=== PATIENT | male | born 1935 | race Caucasian/White ===

== ENCOUNTER 2016-09-06 01:04 | Inpatient (IN) | payer OTHER ==
[~2016-09-06] VITALS: Ht 170.2 cm; Wt 68.0 kg
[~2016-09-06 01:04] MED LIST: ASPERDRINK81 MG PO; AZASAN75 MG PO; CYPROHEPTADINE H4 MG PO; DAILY VALUE1 EACH PO; LIPITOR40 MG PO; LOPRESSOR50 MG PO; LOW DOSE ASPIRI81 M1 PO; NIASPAN,SLO-NI500 MG PO; NITRO-DUR1 EAC1 TD; NITROSTAT0.4 MG SL; NORVASC5 MG PO; PANTOPRAZOLE SO40 MG PO; PLAVIX75 MG PO; ROCALTROL0.25 MCG; ROCALTROL0.25 MCG PO; SERTRALINE HCL50 MG PO; VITAMIN C500 M1 PO
[2016-09-06 01:45] LABS: MCH 31.8 PG (29.0-34.0); MCHC 32.9 G/DL (30.0-36.0); MCV 96.7 FL (86-99); MEAN PLAT.VOLUME 10.5 uM^3 (9.0-12.4); PLATELET COUNT 167 K/uL (156-360); RBC DIS.WIDTH-CV 14.3 % (11.8-14.6); RBC DIS.WIDTH-SD 50.7 % (39-53); RED BLOOD COUNT 3.62 M/uL (4.00-5.50); WHITE BLOOD COUNT 12.4 K/uL (4.1-10.2)
[2016-09-06 01:56] LABS: CARBON DIOXIDE (BICARBONATE) 30.6 MEQ/L (20-31)
[2016-09-06 02:01] LABS: CHLORIDE 102 mEq/L (99-109); POTASSIUM 3.5 mEq/L (3.7-5.4); SODIUM 137 mEq/L (136-147)
[2016-09-06 02:02] LABS: GLUCOSE 118 mg/dL (70-99)
[2016-09-06 02:04] LABS: ANION GAP 10 MEQ/L (2-14)
[2016-09-06 02:06] LABS: GFR ESTIMATE (CALCULATED) 56 mL/min/
[2016-09-06 02:07] LABS: UREA NITROGEN (BUN) 13 mg/dL (9-23)
[2016-09-06 02:15] LABS: TROP-I INTERPRETATION NEGATIVE; TROPONIN-I 0.02 ng/mL (0.0-0.30)
[2016-09-06] MEDS ORDERED: VITAMIN B12-FO1 EACH PO (03:29)
[2016-09-06] MEDS ORDERED: ULTRAM50 MG PO (03:29)
[2016-09-06] MEDS ORDERED: PLAVIX75 MG PO (03:30)
[2016-09-06] MEDS ORDERED: IMURAN50 MG PO (03:31)
[2016-09-06 08:24] LABS: MAGNESIUM 1.7 mg/dL (1.3-2.7)
[2016-09-06] MEDS ORDERED: AMLODIPINE BESYL5 MG PO (10:26)
[2016-09-06] MEDS ORDERED: VITAMIN B-12250 MCG PO (10:29)
[2016-09-06] MEDS ORDERED: METOPROLOL TART25 MG PO (10:30)
[2016-09-06] MEDS ORDERED: SERTRALINE HCL100 MG PO (10:33)
[2016-09-06] MEDS ORDERED: NEXIUM40 MG PO (10:33)
[2016-09-06] MEDS ORDERED: VITAMIN E100 UNIT PO (10:35)
[2016-09-06] MEDS ORDERED: LOPRESSOR25 MG PO (10:52)
[2016-09-06 14:56] VITALS: BP 97/58
[2016-09-06 20:00] VITALS: BP 108/66
[2016-09-06 23:26] VITALS: BP 110/67
[2016-09-07 03:31] VITALS: BP 116/71
[2016-09-07 06:39] LABS: HEMATOCRIT 31.8 % (38.0-50.0); MCH 32.2 PG (29.0-34.0); MCHC 32.7 G/DL (30.0-36.0); MCV 98.5 FL (86-99); MEAN PLAT.VOLUME 10.8 uM^3 (9.0-12.4); PLATELET COUNT 155 K/uL (156-360); RBC DIS.WIDTH-CV 14.7 % (11.8-14.6); RBC DIS.WIDTH-SD 53.2 % (39-53); RED BLOOD COUNT 3.23 M/uL (4.00-5.50); WHITE BLOOD COUNT 9.9 K/uL (4.1-10.2)
[2016-09-07 07:15] LABS: ANION GAP 6 MEQ/L (2-14); CHLORIDE 103 MEQ/L (99-109); GFR ESTIMATE (CALCULATED) > 59 mL/min/; POTASSIUM 4.1 MEQ/L (3.7-5.4); SAMPLE HEMOLYSIS CHECK 0; SAMPLE ICTERIC CHECK 0; SAMPLE LIPEMIA CHECK 0; SODIUM 138 MEQ/L (136-147); UREA NITROGEN (BUN) 16 mg/dL (9-23)
[2016-09-07 07:18] VITALS: BP 120/56
[2016-09-07 07:23] LABS: GLUCOSE 78 mg/dL (70-99)
[2016-09-07 11:01] VITALS: BP 106/60
[2016-09-07 14:55] VITALS: BP 101/55
[2016-09-07 20:00] VITALS: BP 104/65
[2016-09-07 23:58] VITALS: BP 120/63
[2016-09-08 03:57] VITALS: BP 120/57
[2016-09-08 05:52] LABS: EOSINOPHIL (%) 0.3 % (0-5); HEMATOCRIT 32.3 % (38.0-50.0); IMMATURE GRANULOCYTE (%) 0.4 % (0.0-0.7); INSTRUMENT ABS NEUTROPHIL CT 7.9 K/uL; LYMPHOCYTE COUNT 1.1 K/uL (1.0-2.8); MCH 31.9 PG (29.0-34.0); MCHC 33.1 G/DL (30.0-36.0); MCV 96.4 FL (86-99); MEAN PLAT.VOLUME 10.3 uM^3 (9.0-12.4); MONOCYTE (%) 9.4 % (3-12); MONOCYTE COUNT 0.9 K/uL (0-0.8); NEUTROPHIL (%) 78.9 % (45-76); NEUTROPHIL COUNT 7.9 K/uL (1.8-6.4); PLATELET COUNT 167 K/uL (156-360); RBC DIS.WIDTH-CV 14.5 % (11.8-14.6); RBC DIS.WIDTH-SD 51.6 % (39-53); RED BLOOD COUNT 3.35 M/uL (4.00-5.50)
[2016-09-08 06:19] LABS: ANION GAP 12 MEQ/L (2-14); CHLORIDE 101 MEQ/L (99-109); GFR ESTIMATE (CALCULATED) > 59 mL/min/; POTASSIUM 4.1 MEQ/L (3.7-5.4); SAMPLE HEMOLYSIS CHECK 0; SAMPLE ICTERIC CHECK 0; SAMPLE LIPEMIA CHECK 0; SODIUM 136 MEQ/L (136-147); UREA NITROGEN (BUN) 22 mg/dL (9-23)
[2016-09-08 06:21] LABS: GLUCOSE 107 mg/dL (70-99)
[2016-09-08 07:35] VITALS: BP 124/73
[2016-09-08 12:26] VITALS: BP 129/70
[2016-09-08 16:39] VITALS: BP 132/68
[2016-09-08 20:02] VITALS: BP 121/71
[2016-09-08 23:59] VITALS: BP 146/78
[2016-09-09 01:19] LABS: HEMATOCRIT 33.8 % (38.0-50.0); MCH 31.9 PG (29.0-34.0); MCHC 33.4 G/DL (30.0-36.0); MCV 95.5 FL (86-99); MEAN PLAT.VOLUME 10.4 uM^3 (9.0-12.4); PLATELET COUNT 188 K/uL (156-360); RBC DIS.WIDTH-CV 14.2 % (11.8-14.6); RBC DIS.WIDTH-SD 49.7 % (39-53); RED BLOOD COUNT 3.54 M/uL (4.00-5.50); WHITE BLOOD COUNT 8.2 K/uL (4.1-10.2)
[2016-09-09 01:30] LABS: CHLORIDE 102 mEq/L (99-109); POTASSIUM 3.9 mEq/L (3.7-5.4); SODIUM 137 mEq/L (136-147)
[2016-09-09 01:32] LABS: GLUCOSE 149 mg/dL (70-99)
[2016-09-09 01:33] LABS: ANION GAP 11 MEQ/L (2-14)
[2016-09-09 01:35] LABS: GFR ESTIMATE (CALCULATED) 56 mL/min/
[2016-09-09 01:36] LABS: UREA NITROGEN (BUN) 24 mg/dL (9-23)
[2016-09-09 06:04] LABS: EOSINOPHIL (%) 0 % (0-5); HEMATOCRIT 33.6 % (38.0-50.0); IMMATURE GRANULOCYTE (%) 0.4 % (0.0-0.7); INSTRUMENT ABS NEUTROPHIL CT 7.9 K/uL; MCHC 32.4 G/DL (30.0-36.0); MCV 98.5 FL (86-99); MEAN PLAT.VOLUME 10.9 uM^3 (9.0-12.4); MONOCYTE (%) 9.9 % (3-12); NEUTROPHIL (%) 79.5 % (45-76); NEUTROPHIL COUNT 7.9 K/uL (1.8-6.4); PLATELET COUNT 187 K/uL (156-360); RBC DIS.WIDTH-CV 14.5 % (11.8-14.6); RBC DIS.WIDTH-SD 53.1 % (39-53); RED BLOOD COUNT 3.41 M/uL (4.00-5.50)
[2016-09-09 07:10] LABS: ANION GAP 14 MEQ/L (2-14); CHLORIDE 100 MEQ/L (99-109); GFR ESTIMATE (CALCULATED) 52 mL/min/; POTASSIUM 4.4 MEQ/L (3.7-5.4); SAMPLE HEMOLYSIS CHECK 0; SAMPLE ICTERIC CHECK 0; SAMPLE LIPEMIA CHECK 0; SODIUM 141 MEQ/L (136-147); UREA NITROGEN (BUN) 25 mg/dL (9-23)
[2016-09-09 07:11] LABS: GLUCOSE 86 mg/dL (70-99)
[2016-09-09 08:03] VITALS: BP 100/66
[2016-09-09 12:08] VITALS: BP 104/61
[2016-09-09 13:41] VITALS: BP 104/62
[2016-09-09 16:12] VITALS: BP 100/51
[2016-09-09 19:45] VITALS: BP 108/61
[2016-09-09 23:53] VITALS: BP 111/64
[2016-09-10 06:18] LABS: EOSINOPHIL (%) 0.2 % (0-5); IMMATURE GRANULOCYTE (%) 0.4 % (0.0-0.7); INSTRUMENT ABS NEUTROPHIL CT 5.6 K/uL; LYMPHOCYTE COUNT 1.4 K/uL (1.0-2.8); MCH 32.2 PG (29.0-34.0); MCHC 32.8 G/DL (30.0-36.0); MCV 98.2 FL (86-99); MEAN PLAT.VOLUME 10.8 uM^3 (9.0-12.4); MONOCYTE (%) 12.9 % (3-12); NEUTROPHIL (%) 69.4 % (45-76); NEUTROPHIL COUNT 5.6 K/uL (1.8-6.4); PLATELET COUNT 210 K/uL (156-360); RBC DIS.WIDTH-CV 14.4 % (11.8-14.6); RED BLOOD COUNT 3.26 M/uL (4.00-5.50); WHITE BLOOD COUNT 8.1 K/uL (4.1-10.2)
[2016-09-10 06:46] LABS: ANION GAP 11 MEQ/L (2-14); CHLORIDE 101 MEQ/L (99-109); GFR ESTIMATE (CALCULATED) 52 mL/min/; GLUCOSE 83 mg/dL (70-99); POTASSIUM 3.8 MEQ/L (3.7-5.4); SAMPLE HEMOLYSIS CHECK 0; SAMPLE ICTERIC CHECK 0; SAMPLE LIPEMIA CHECK 0; SODIUM 139 MEQ/L (136-147); UREA NITROGEN (BUN) 32 mg/dL (9-23)
[2016-09-10 09:00] VITALS: BP 144/85
[2016-09-10 11:04] VITALS: BP 139/79
[2016-09-10 15:51] LABS: ADD MIUA? YES; BILIRUBIN NEGATIVE; BLOOD NEGATIVE; COLOR YELLOW ((YELLOW)); GLUCOSE (STRIP) NEGATIVE; KETONES 5; LEUKOCYTES TRACE; NITRITE NEGATIVE; PROTEIN (STRIP) NEGATIVE; SPECIFIC GRAVITY 1.013 (1.000-1.030); UROBILINOGEN 0.2 MG/DL (0.2-1.0)
[2016-09-10 15:53] LABS: BACTERIA NONE SEEN /HPF; EPITHELIAL CELLS RARE /HPF; MUCUS TRACE /LPF; RED BLOOD CELLS 0-5 /HPF (0-5); UCUL ADDED? NO; WHITE BLOOD CELLS 0-5 /HPF (0-5)
[2016-09-10 16:11] VITALS: BP 139/89
[2016-09-11 00:15] VITALS: BP 140/78
[2016-09-11 08:13] VITALS: BP 142/79
[2016-09-11 15:16] VITALS: BP 142/88
[2016-09-11 23:47] VITALS: BP 110/68
[2016-09-12 07:03] LABS: HEMATOCRIT 33.7 % (38.0-50.0); MCH 32.2 PG (29.0-34.0); MCHC 32.3 G/DL (30.0-36.0); MCV 99.7 FL (86-99); MEAN PLAT.VOLUME 10.6 uM^3 (9.0-12.4); PLATELET COUNT 240 K/uL (156-360); RBC DIS.WIDTH-CV 14.5 % (11.8-14.6); RBC DIS.WIDTH-SD 53.1 % (39-53); RED BLOOD COUNT 3.38 M/uL (4.00-5.50); WHITE BLOOD COUNT 9.4 K/uL (4.1-10.2)
[2016-09-12 07:44] LABS: ANION GAP 11 MEQ/L (2-14); CHLORIDE 103 MEQ/L (99-109); GFR ESTIMATE (CALCULATED) 56 mL/min/; MAGNESIUM 2.2 mg/dl (1.3-2.7); POTASSIUM 3.7 MEQ/L (3.7-5.4); SAMPLE HEMOLYSIS CHECK 0; SAMPLE ICTERIC CHECK 0; SAMPLE LIPEMIA CHECK 0; SODIUM 141 MEQ/L (136-147); UREA NITROGEN (BUN) 32 mg/dL (9-23)
[2016-09-12 07:47] LABS: GLUCOSE 106 mg/dL (70-99)
[2016-09-12 07:51] VITALS: BP 102/64
[2016-09-12 15:41] VITALS: BP 118/62
[2016-09-12 23:52] VITALS: BP 109/65
[2016-09-13 08:07] VITALS: BP 102/64
[2016-09-13] MEDS ORDERED: DONEPEZIL HCL5 MG PO (13:32)
[2016-09-13] MEDS ORDERED: DUONEB 2.5-0.5 M3 ML AEROSOL (13:32)
[2016-09-13] MEDS ORDERED: LOPRESSOR25 MG PO (13:32)
[2016-09-13] MEDS ORDERED: GUAIFENESIN WI120 M1 PO (13:33)
[2016-09-13] MEDS ORDERED: DOCUSATE SODIU100 MG PO (13:33)
== END 2016-09-13 16:40 | DRG 194 ==
LOC: EME → EDBD 01:04 → 5SOUTH 02:43 → EDOF 02:43 → 5SOUTH 19:20
PROVIDERS: Emergency Medicine; Hospitalist; Internal Medicine; Physician Assistant
DX: J18.9 Pneumonia, unspecified organism (principal); I25.10 Atherosclerotic heart disease of native coronary artery without angina pectoris; I25.2 Old myocardial infarction; I13.0 Hypertensive heart and chronic kidney disease with heart failure and stage 1 through stage 4 chronic kidney disease, or unspecified chronic kidney disease; N18.3 Chronic kidney disease, stage 3 (moderate); I35.0 Nonrheumatic aortic (valve) stenosis; J98.11 Atelectasis; I44.7 Left bundle-branch block, unspecified; D64.9 Anemia, unspecified; E78.5 Hyperlipidemia, unspecified; F01.50 Vascular dementia, unspecified severity, without behavioral disturbance, psychotic disturbance, mood disturbance, and anxiety; Z87.891 Personal history of nicotine dependence; I50.32 Chronic diastolic (congestive) heart failure; R09.02 Hypoxemia; R04.2 Hemoptysis; Z95.5 Presence of coronary angioplasty implant and graft; J98.01 Acute bronchospasm; F32.9 Major depressive disorder, single episode, unspecified
CPT/HCPCS: 70450; 71010; 71020; 71250; 80048; 80048 91; 81003; 82607; 82803; 82948; 83605; 83735; 83880; 84145 90; 84443; 84484; 85025; 85027; 87040; 93005; 94640; 94640 76; 94799; 97530 GP; 99202; 99281; 99285; J1644; J1956; J2060; J7120; J7500

== ENCOUNTER 2016-09-28 16:56 | Inpatient (IN) | payer OTHER ==
[~2016-09-28] VITALS: Ht 170.2 cm; Wt 65.3 kg
[~2016-09-28 16:56] MED LIST changes: +AMLODIPINE BESYL5 MG PO; +DOCUSATE SODIU100 MG PO; +DONEPEZIL HCL5 MG PO; +DUONEB 2.5-0.5 M3 ML AEROSOL; +GUAIFENESIN WI120 M1 PO; +IMURAN50 MG PO; +LOPRESSOR25 MG PO; +METOPROLOL TART25 MG PO; +NEXIUM40 MG PO; +SERTRALINE HCL100 MG PO; +ULTRAM50 MG PO; +VITAMIN B-12250 MCG PO; +VITAMIN B12-FO1 EACH PO; +VITAMIN E100 UNIT PO
[2016-09-28 17:29] LABS: HEMATOCRIT 33.2 % (38.0-50.0); MCH 30.9 PG (29.0-34.0); MCHC 31.3 G/DL (30.0-36.0); MCV 98.5 FL (86-99); MEAN PLAT.VOLUME 10.3 uM^3 (9.0-12.4); PLATELET COUNT 271 K/uL (156-360); RBC DIS.WIDTH-CV 14.1 % (11.8-14.6); RBC DIS.WIDTH-SD 49.7 % (39-53); RED BLOOD COUNT 3.37 M/uL (4.00-5.50); WHITE BLOOD COUNT 6.5 K/uL (4.1-10.2)
[2016-09-28 17:36] LABS: CHLORIDE 108 mEq/L (99-109); POTASSIUM 4.1 mEq/L (3.7-5.4); SODIUM 141 mEq/L (136-147)
[2016-09-28 17:38] LABS: GLUCOSE 149 mg/dL (70-99)
[2016-09-28 17:40] LABS: ANION GAP 9 MEQ/L (2-14); TOTAL BILIRUBIN 0.5 mg/dL (0.0-1.0)
[2016-09-28 17:42] LABS: ALKALINE PHOSPHATASE 93 IU/L (3-129); GFR ESTIMATE (CALCULATED) 56 mL/min/
[2016-09-28 17:43] LABS: UREA NITROGEN (BUN) 16 mg/dL (9-23)
[2016-09-28 18:17] LABS: INTER. NORMALIZED RATIO 1.1; PROTHROMBIN TIME 11.1 (9.2-11.2); PTT 27.6 (25-32)
[2016-09-28 19:41] LABS: ADD MIUA? NO; BILIRUBIN NEGATIVE; BLOOD NEGATIVE; COLOR YELLOW ((YELLOW)); GLUCOSE (STRIP) NEGATIVE; KETONES NEGATIVE; LEUKOCYTES NEGATIVE; NITRITE NEGATIVE; PROTEIN (STRIP) NEGATIVE; SPECIFIC GRAVITY 1.018 (1.000-1.030); UROBILINOGEN 0.2 MG/DL (0.2-1.0)
[2016-09-28] MEDS ORDERED: METOPROLOL TART25 MG PO ×2 (22:23)
[2016-09-28] MEDS ORDERED: VITAMIN E100 UNIT PO (22:24)
[2016-09-29 01:34] VITALS: BP 155/69
[2016-09-29 05:47] LABS: HEMATOCRIT 29.1 % (38.0-50.0); MCV 98.3 FL (86-99)
[2016-09-29 06:11] LABS: ALKALINE PHOSPHATASE 73 IU/L (3-129); ANION GAP 7 MEQ/L (2-14); CHLORIDE 106 MEQ/L (99-109); GFR ESTIMATE (CALCULATED) 56 mL/min/; POTASSIUM 3.9 MEQ/L (3.7-5.4); SAMPLE HEMOLYSIS CHECK 0; SAMPLE ICTERIC CHECK 0; SAMPLE LIPEMIA CHECK 0; SODIUM 139 MEQ/L (136-147); TOTAL BILIRUBIN 0.3 MG/DL (0.0-1.0); UREA NITROGEN (BUN) 14 mg/dL (9-23)
[2016-09-29 06:26] LABS: GLUCOSE 103 mg/dL (70-99)
[2016-09-29 08:00] VITALS: BP 120/70
[2016-09-29 08:40] LABS: POC NON-PRINT COM 1 ND
[2016-09-29 11:12] VITALS: BP 122/68
[2016-09-29 12:38] LABS: HEMATOCRIT 33.4 % (38.0-50.0); MCV 98.8 FL (86-99)
[2016-09-29] MEDS ORDERED: ALPRAZOLAM0.25 M2 PO (14:54)
== END 2016-09-29 16:41 | disposition short-term general hospital (02) | DRG 378 ==
LOC: EME 16:56 → EDOF 09-29 00:08 → 5SOUTH 09-29 00:08
PROVIDERS: Internal Medicine; Physician Assistant
DX: K92.1 Melena (principal); I35.0 Nonrheumatic aortic (valve) stenosis; D64.9 Anemia, unspecified; E78.00 Pure hypercholesterolemia, unspecified; E78.5 Hyperlipidemia, unspecified; K76.0 Fatty (change of) liver, not elsewhere classified; N18.9 Chronic kidney disease, unspecified; I44.7 Left bundle-branch block, unspecified; I13.0 Hypertensive heart and chronic kidney disease with heart failure and stage 1 through stage 4 chronic kidney disease, or unspecified chronic kidney disease; I25.10 Atherosclerotic heart disease of native coronary artery without angina pectoris; K55.20 Angiodysplasia of colon without hemorrhage; I50.9 Heart failure, unspecified; K57.30 Diverticulosis of large intestine without perforation or abscess without bleeding; N28.1 Cyst of kidney, acquired; N40.0 Benign prostatic hyperplasia without lower urinary tract symptoms; K63.5 Polyp of colon; I71.2 Thoracic aortic aneurysm, without rupture; F03.90 Unspecified dementia, unspecified severity, without behavioral disturbance, psychotic disturbance, mood disturbance, and anxiety; I70.0 Atherosclerosis of aorta; Z60.2 Problems related to living alone; Z91.14 Patient's other noncompliance with medication regimen; Z88.0 Allergy status to penicillin; Z79.02 Long term (current) use of antithrombotics/antiplatelets; Z86.73 Personal history of transient ischemic attack (TIA), and cerebral infarction without residual deficits; Z87.11 Personal history of peptic ulcer disease; Z87.891 Personal history of nicotine dependence; I25.2 Old myocardial infarction; Z98.61 Coronary angioplasty status; Z82.49 Family history of ischemic heart disease and other diseases of the circulatory system
CPT/HCPCS: 74177; 80053; 81003; 82272; 83605; 85014; 85018; 85027; 85610; 85730; 86900; 86901; 86920; 99281; 99285; C9113; J7030; J7500